=== PATIENT | female | born 1975 | race Caucasian/White ===

== ENCOUNTER 2018-02-16 06:07 | Inpatient (IN) | payer OTHER ==
[~2018-02-16 06:07] MED LIST: ACETAMINOPHEN 500 MG TAB PO ONE; GABAPENTIN 300 MG CAP PO ONE; LIDOCAINE 1% 2 ML INJ ID PRN; LR 1,000 ML IV ONE; ceFAZolin 2 GM/DEXTROSE 100 ML IV ONE
[2018-02-16] MEDS ORDERED: THROMBIN (BOVINE) 20,000 UNIT SPRAY TP ONE (06:36)
[2018-02-16] MEDS ORDERED: BACITRACIN 50,000 UNITS/10 ML SYR IRR ONE (06:36)
[2018-02-16] MEDS ORDERED: SURGIFLO MATRIX KIT WITH THROMBIN 8 ML TP ONE (06:36)
[2018-02-16] MEDS ORDERED: CHLORHEXIDINE GLUC HIBICLENS 118 ML BTL TP ONE (06:36)
[2018-02-16] MEDS ORDERED: MIDAZOLAM 2 MG/2 ML VIAL IVP ONE (06:54)
--- NOTE | 2018-02-16 06:54 | PDHPUP ---
History & Physical Update H&P update statement: This history and physical update is based on an assessment of the patient which was completed after admission or registration (within 24 hours), but prior to the surgery/procedure. H&P update: H&P reviewed & patient examined, no change in patient's condition since H&P completed (Consents signed and site marked. All questions answered.)
--- NOTE | 2018-02-16 06:57 | PDANEPAE ---
ANE History of Present Illness 42 y/o prior smoker here for 3 level ACDF for symptomatic cervical myelopathy. ANE Past Medical History - Cardiovascular History Hx Hypertension: No Hx Arrhythmias: No Hx Chest Pain: No Hx Coronary Artery / Peripheral Vascular Disease: No Hx CHF / Valvular Disease: No Hx Palpitations: No Cardiovascular History Comment: PERICARDITIS 2002 - Pulmonary History Hx COPD: No Hx Asthma/Reactive Airway Disease: No Hx Recent Upper Respiratory Infection: No Hx Oxygen in Use at Home: No Hx Sleep Apnea: No Sleep Apnea Screening Result - Last Documented: Negative Pulmonary History Comment: QUIT SMOKING 01/15/18. 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 3 TIA'S LAST 2005 - Endocrine History Hx Diabetes: No Endocrine History Comment: HYPOTHYROID - Renal History Hx Renal Disorders: Yes Renal History Comment: URGENCY. OCCASIONAL INCONT - Liver History Hx Hepatic Disorders: Yes Hepatic History Comment: LIVER BILE DUCT DILATED. ERCP NEG - Neurological & Psychiatric Hx Hx Neurological and Psychiatric Disorders: Yes Neurological / Psychiatric History Comment: FREQUENT MIGRAINES. ANXIETY( RELATED TO FAMILY ISSUES) - Cancer History Hx Cancer: Yes Cancer History Comment: CERVICAL - Congenital Disorder History Hx Congenital Disorders: No - GI History Hx Gastrointestinal Disorders: Yes Gastrointestinal History Comment: IBS - Other Health History Other Health History: SPINAL STENOSIS. CDD. NT ARMS/HANDS. LT LEG WEAKNESS. CARPAL TUNNEL ULNAR NEUROPATHIES. INTERMITTENT ECZEMA. GLAUCOMA. UPPER DENTURES - Chronic Pain History Chronic Pain: Yes (NECK,TIFF SHLDRS,THORACIC) - Surgical History Prior Surgeries: HYSTERECTOMY. TUBAL LIGATION. UPPER DENTAL EXTRACTION 2017 ANE Review of Systems Review of Systems: - Exercise capacity Exercise capacity: >=4 METS METS (RN): 6 METS ANE Patient History - Allergies Allergies/Adverse Reactions: banana Allergy (Verified 02/02/18 09:09) melon Allergy (Verified 02/02/18 09:09) - Home Medications Home medications: home medication list seen and reviewed Home Medications: ALPRAZolam [Xanax 1 MG (*)] 2 mg PO HS 02/08/18 [Last Taken 02/16/18] Albuterol [Proventil Inhaler HFA (*)] 1 - 2 puffs IH Q4H PRN 02/08/18 [Last Taken 02/09/18] Ascorbic Acid [Vitamin C 500 mg (*)] 1,000 mg PO DAILY 02/08/18 [Last Taken 12/19] Cholecalciferol Vit D3 [Vitamin D3 (*)] 5,000 units PO DAILY 02/08/18 [Last Taken 02/09/18] Herbals/Supplements -Info Only 1 ea PO DAILY 02/08/18 [Last Taken 02/09/18] Latanoprost 0.005% [Xalatan 0.005% (*)] 1 drops EACHEYE HS 02/08/18 [Last Taken 02/15/18] Levothyroxine [Synthroid 200 mcg (*)] 200 mcg PO DAILY06 02/08/18 [Last Taken ] SUMAtriptan [Imitrex 50 MG (*)] 100 mg PO DAILY PRN 02/08/18 [Last Taken ] oxyCODONE HCL/ACETAMINOPHEN [Percocet 10-325 mg Tablet] 1 each PO BID 02/08/18 [ Last Taken 02/16/18] Chantix DAILY 02/13/18 [Last Taken 02/16/18] MARINOL PRN 02/13/18 [Last Taken Unknown] Triamcinolone 0.05% PRN 02/13/18 [Last Taken 02/15/18] - NPO status NPO Status: no food or drink >8 hours NPO Since - Liquids (Date): 02/16/18 NPO Since - Liquids (Time): 21:30 NPO Since - Solids (Date): 02/15/18 NPO Since - Solids (Time): 19:30 - Smoking Hx Smoking Status: Former smoker - Family Anes Hx Family Hx Anesthesia Complications: NEG ANE Labs/Vital Signs - Vital Signs Vital Signs: reviewed preoperatively; see RN documention for details Height: 157.48 cm Weight: 45.359 kg ANE Physical Exam - Airway Neck exam: FROM Mallampati Score: Class 1 Mouth exam: dentures - Pulmonary Pulmonary: clear to auscultation - Cardiovascular Cardiovascular: regular rate and rhythym - ASA Status ASA Status: II ANE Anesthesia Plan Lines/Monitors: arterial line
[2018-02-16] MEDS ORDERED: DEXMEDETOMIDINE HCL 400 MCG in NS 100 ML IV SCH (07:00)
[2018-02-16] MEDS ORDERED: PROPOFOL/EMULSION 500 MG/50 ML BOTTLE IV ONE ×2 (07:04→09:01)
[2018-02-16] MEDS ORDERED: fentaNYL 100 MCG/2 ML INJ ONE ×3 (07:05→11:07)
[2018-02-16] MEDS ORDERED: MIDAZOLAM 2 MG/2 ML VIAL ONE (07:06)
[2018-02-16] MEDS ORDERED: DEXAMETHASONE 4 MG/ML VIAL ONE ×3 (07:15)
[2018-02-16] MEDS ORDERED: PETROLAT,WHT/MIN OIL/SOD CHL 3.5 GM OPHT.OINT ONE (07:17)
[2018-02-16] MEDS ORDERED: PROPOFOL 200 MG/20 ML VIAL ONE (07:22)
--- NOTE | 2018-02-16 09:44 | POSTANESTH ---
Post Anesthetic Evaluation Respiratory Status: Normal, Stable Level of Consciousness/Mental Status: Can Participate in Eval Pain Control: Adequate, Prn Tx Ordered Nausea/Vomiting Control: Adequate, Prn Tx Ordered Complications Possibly Related to Anesthesia: None Noted
[2018-02-16] MEDS ORDERED: ONDANSETRON 4 MG/2 ML VIAL ONE (10:07)
[2018-02-16] MEDS ORDERED: LABETALOL HCL 5 MG/ML 20 ML MDV IVP PRN (10:09)
[2018-02-16] MEDS ORDERED: PROMETHAZINE HCL 25 MG/ML INJ IVP PRN (10:09)
[2018-02-16] MEDS ORDERED: oxyCODONE IR 5 MG TAB PO PRN (10:09)
[2018-02-16] MEDS ORDERED: METOCLOPRAMIDE 10 MG/2 ML VIAL IVP PRN (10:09)
[2018-02-16] MEDS ORDERED: NALOXONE HCL 0.4 MG/ML INJ IVP PRN (10:09)
[2018-02-16] MEDS ORDERED: ALBUTEROL 3 ML DEYVIAL IH PRN (10:09)
[2018-02-16] MEDS ORDERED: HYDROmorphONE/DILAUDID 2 MG/ML INJ IVP PRN (10:09)
[2018-02-16] MEDS ORDERED: MEPERIDINE 25 MG/0.5 ML AMP IVP PRN (10:09)
[2018-02-16] MEDS ORDERED: ACETAMINOPHEN 500 MG TAB PO PRN (10:09)
[2018-02-16] MEDS ORDERED: ALBUTEROL 60 PUFFS/8 GM MDI IH PRN (11:04)
[2018-02-16] MEDS ORDERED: MAGNESIUM HYDROXIDE 30 ML UDCUP PO PRN (11:05)
[2018-02-16] MEDS ORDERED: ONDANSETRON 4 MG/2 ML VIAL IVP PRN (11:05)
[2018-02-16] MEDS ORDERED: LACTULOSE 20 GM/30 ML UDCUP PO PRN (11:05)
[2018-02-16] MEDS ORDERED: METHOCARBAMOL 750 MG TAB PO PRN (11:05)
[2018-02-16] MEDS ORDERED: POLYETHYLENE GLYCOL 3350 17 GM PKT PO PRN (11:05)
[2018-02-16] MEDS ORDERED: diphenhydrAMINE 25 MG CAP PO PRN (11:05)
[2018-02-16] MEDS ORDERED: ONDANSETRON DISINTEGRATING 4 MG TAB PO PRN (11:05)
[2018-02-16] MEDS ORDERED: BISACODYL 10 MG SUPP PR PRN (11:05)
[2018-02-16] MEDS ORDERED: HYDROmorphONE/DILAUDID 2 MG/ML INJ ONE (11:07)
[2018-02-16] MEDS: fentaNYL 100 MCG/2 ML INJ IVP PRN ×2 (11:11→11:20)
[2018-02-16] MEDS ORDERED: NS 1,000 ML IV SCH (11:15)
--- NOTE | 2018-02-16 11:35 | POSTOPPROG ---
Post Op Note Date of Operation: 02/16/18 Surgeon: Jimy Beavers Laborer Tree Tapping: INGA Rich PAC Anesthesia: GET(General Endotracheal) Pre-op Diagnosis: cervical stenosis Post-op Diagnosis: cervical stenosis Indication: cervical stenosis Procedure: ACDF C3/4 and C5/6 and C6/7 via 2 separate incision Inf/Abcess present in the surg proc area at time of surgery?: No PA Addendum - Addendum .: S: Posterior neck pain O: NAD A&Ox3 MAEx4 5/5 and equal in BUE and BLE 42y/o female s/p ACDF C3/4 and C5/6 and C6/7 via 2 separate incision -Advance diet as tolerated -Optimize pain management -Post op xrays pending -Hard collar at all times other than eating -DVT prophx: TEDs, SCDs, Lovenox okay POD3 -PT/OT/CLINICAL DATA MANAGER -Please notify NS with any change in neuro/motor exam
[2018-02-16] MEDS ORDERED: DRONABINOL 2.5 MG CAP PO PRN (12:00)
[2018-02-16] MEDS: DEXAMETHASONE 4 MG/ML VIAL IVP SCH ×2 (12:36→17:35)
--- NOTE | 2018-02-16 14:11 | PDMN ---
Medical Necessity Medical necessity: Pt meets inpt criteria per MD order and [facility] [place] S-320, Cervical Fusion, Anterior. 42 y/o w/cervical stenosis admitted s/p ACDF C3/4, C5/6, C6/ 7. PT/OT/STOCK UNLOADER pending, pain management, IV Decadron. May require ext post-op care given multi-level fusion.
[2018-02-16] MEDS: CYCLOBENZAPRINE 10 MG TAB PO SCH ×2 (14:50→22:48)
[2018-02-16] MEDS: ACETAMINOPHEN 500 MG TAB PO SCH ×2 (14:50→22:47)
[2018-02-16] MEDS: ceFAZolin 2 GM/DEXTROSE 100 ML IV SCH ×2 (14:50→22:48)
[2018-02-16] MEDS: oxyCODONE IR 5 MG TAB PO PRN ×2 (15:58→20:01)
--- NOTE | 2018-02-16 16:54 | GOP ---
DATE OF OPERATION: 02/16/2018 SURGEON: Jimy Beavers MD AUTOCAD DETAILER: VAHE Vizcaino. ANESTHESIA: General. PREOPERATIVE DIAGNOSIS: 1. C3-C4 severe spinal stenosis. 2. C5 through C7 cervical spondylosis. 3. Cervical myelopathy. 4. Cervical radiculopathy. 5. Treatment refractory to nonoperative intervention. POSTOPERATIVE DIAGNOSIS: 1. C3-C4 severe spinal stenosis. 2. C5 through C7 cervical spondylosis. 3. Cervical myelopathy. 4. Cervical radiculopathy. 5. Treatment refractory to nonoperative intervention. PROCEDURE PERFORMED: 1. Anterior arthrodesis with approach to C3 and C4. 2. C3-C4 diskectomy with bilateral foraminotomies, osteophytectomies, and interbody fusion using a 7 x 14 x 11 mm titanium coated polyetheretherketone cage filled with morselized autograft and allograft. 3. Anterior cervical fusion C3 and C4 with a 15 mm Medtronic Zevo plate 4. Anterior arthrodesis with approach to C5, C6, and C7 via a separate incision. 5. C5-C6 diskectomy with bilateral foraminotomies, osteophytectomies, and interbody fusion using a 6 x 14 x 11 mm titanium coated polyetheretherketone cage filled with morselized autograft and allograft. 6. C6-C7 diskectomy with bilateral foraminotomies, osteophytectomies, and interbody fusion using a 6 x 14 x 11 mm titanium coated polyetheretherketone cage filled with morselized autograft and allograft. 7. Anterior cervical fusion of C5, C6, C7 with a 33 mm Medtronic Zevo plate. 8. Use of intraoperative fluoroscopy, less than 1 hour physician time. 9. Use of neuromonitoring. 10. Use of operative microscope. 11. Use of intraoperative fluoroscopy, less than 1 hour physician time. FINDINGS: per imaging SPECIMENS: None. ESTIMATED BLOOD LOSS: 20 mL. INDICATIONS: The patient is a very pleasant 42-year-old woman who presented office with signs and symptoms consistent with cervical myelopathy and radiculopathy. She had evidence of severe spinal stenosis at the C3-C4 level and moderate cervical stenosis with spondylosis C5 through C7. After discussion of the various risks, benefits, and treatment alternatives, we decided to proceed with the surgery as described above. DESCRIPTION OF PROCEDURE: Patient was brought to the operating theater and underwent general endotracheal anesthesia without complications. She had Venodynes, KIANA hose, and the appropriate lines placed by Anesthesia. She was maintained supine on the operating room table. Using lateral fluoroscopy and a spinal needle, we picked 2 entry points that would give us best approach at C3- C4 and the C5 through C7 levels. This was marked as 2 transverse incisions on the right side of her neck. These areas were then prepped and draped in usual sterile surgical fashion. A time-out was completed per protocol, and the patient received antibiotics within 1 hour of incision. Both incisions were taken down initially with the scalpel blade. Using monopolar, the incisions were taken down to the level of the platysma. First we moved up to C3-C4, where we used blunt and sharp dissection to travel medial to the carotid sheath and lateral to the esophagus and trachea to reach the prevertebral fascia. We placed a bayonetted needle into the disk space of C3- C4 and confirmed our level using lateral fluoroscopy. We then moved down to the C5 through C7 level where we again opened the fibers of the platysma cranially and caudally and used blunt dissection to travel in a plane medial to the carotid sheath and lateral to the esophagus and trachea until we reached the prevertebral fascia. We placed a bayonetted needle at the disk space of C5- C6. We confirmed our levels at the C3-C4 and C5-C6 levels using lateral fluoroscopy. We elevated the longus coli muscle from the anterior vertebral bodies of C5, C6, and C7 and then C3-C4. We moved up to C3-C4 and placed deep retractors to maintain our exposure. The microscope was brought into the field to assist with microscopic dissection and to maintain illumination and magnification. We placed [place] pins into the vertebral bodies of C3-C4 and placed C3-C4 into mild distraction. We completed a C3-C4 diskectomy with bilateral foraminotomies and osteophytectomies. We prepared the cartilaginous endplates and measured interbody space. We placed a 7 x 14 x 11 mm titanium coated PEEK cage filled with morselized autograft and allograft in the C3-C4 disk space. We removed the [place] pins and drilled down the anterior osteophytes and secured a 15 mm Medtronic Zevo plate onto the vertebral bodies of C3 and C4. We obtained hemostasis with a bipolar, and the wound was irrigated copiously with bacitracin irrigation. We then closed this wound in multiple layers using Vicryl sutures for deep layers and Dermabond for the skin. We then moved on to the C5-C7 levels. We moved to C5-C6 and placed [place] pins into C5 and C6 and placed C5-C6 in mild distraction. We completed a C5-C6 diskectomy with bilateral foraminotomies and osteophytectomies. We prepared the cartilaginous endplates and measured the interbody space. We placed a 6 x 14 x 11 mm titanium coated PEEK cage filled with morselized autograft and allograft into the C5-C6 disk space. We removed the [place] pin from C5 and placed it in C7, and placed C6-C7 into mild distraction. We completed a C6-C7 diskectomy with bilateral foraminotomies and osteophytectomies. We prepared the cartilaginous endplates and measured the interbody space. We placed a 6 x 14 x 11 mm titanium coated PEEK cage filled with morselized autograft and allograft into the C6-7 disk space. We removed with the [place] pins and drilled down the anterior osteophytes and secured a 33 mm Medtronic Zevo plate onto the vertebral bodies of C5, C6 and C7. AP and lateral x-rays demonstrated good placement of the hardware. The wound was irrigated copiously with bacitracin irrigation. We then closed the wound in multiple layers including Vicryl sutures for the deep layers and Dermabond for the skin. The patient's wounds were dressed sterilely. She was awakened, extubated, and taken to the recovery room in stable condition. There were no complications and no noted changes on neuromonitoring throughout the procedure. COMPLICATIONS: None. /[id number]/MODL MTDD
--- NOTE | 2018-02-16 17:21 | SOAPPROG ---
Downtime Inpatient MD Late Entry SOAP Note: I met with the patient. She is doing well overall. Will monitor overnight and then plan for dc tomorrow if swallowing and pain controlled.
[2018-02-16] MEDS: HYDROmorphONE/DILAUDID 2 MG TAB PO PRN ×2 (18:46→22:49)
[2018-02-16] MEDS ORDERED: ALPRAZolam 1 MG TAB PO SCH (21:00)
[2018-02-16] MEDS ORDERED: LATANOPROST 0.005% 2.5 ML OPHT DROPS EACHEYE SCH (21:00)
[2018-02-16] MEDS ORDERED: oxyCODONE IR 5 MG TAB PO SCH (21:00)
[2018-02-16] MEDS ORDERED: OXYCODONE/APAP 5/325 TAB PO SCH (21:00)
[2018-02-16] MEDS: SENNOSIDES/DOCUSATE SODIUM TAB PO SCH (21:01)
[2018-02-16] MEDS: FAMOTIDINE 20 MG TAB PO SCH (21:01)
[2018-02-17] MEDS ORDERED: SUMAtriptan 50 MG TAB PO PRN (02:30)
[2018-02-17] MEDS: ACETAMINOPHEN 500 MG TAB PO SCH (05:06)
[2018-02-17] MEDS: HYDROmorphONE/DILAUDID 2 MG TAB PO PRN ×2 (05:11→09:11)
[2018-02-17] MEDS ORDERED: LEVOTHYROXINE 100 MCG TAB PO SCH (06:00)
[2018-02-17] MEDS: oxyCODONE IR 5 MG TAB PO PRN (07:17)
[2018-02-17] MEDS: SENNOSIDES/DOCUSATE SODIUM TAB PO SCH (08:05)
[2018-02-17] MEDS: CYCLOBENZAPRINE 10 MG TAB PO SCH (08:05)
[2018-02-17] MEDS: FAMOTIDINE 20 MG TAB PO SCH (08:05)
[2018-02-17 08:54] VITALS: BP 116/70
[2018-02-17] MEDS ORDERED: Herbals/Supplements -Info Only PO SCH (09:00)
--- NOTE | 2018-02-17 10:47 | NEUSURGPN ---
Assessment/Plan: A/P:42y/o female s/p ACDF C3/4 and C5/6 and C6/7 via 2 separate incision -Advance diet as tolerated- doing well currently -Optimize pain management -Post op xrays show good hardware placement -Hard collar at all times other than eating -DVT prophx: TEDs, SCDs, Lovenox okay POD3 -PT/OT/BUILDING CONTRACTOR -Dispo home today when cleared by BUILDING CONTRACTOR -Please notify NS with any change in neuro/motor exam S: Patient is doing much better this morning in terms of pain. Swallowing well. Eager to go home O: NAD A&Ox3 MAEx4 5/5 and equal in BUE and BLE - Physician Discussed Patient with Dr.: Nimesh Neurosurgery Physical Exam - Vitals, I&O, Labs I and O 02/16/18 02/17/18 02/18/18 05:59 05:59 05:59 Intake Total 2450 Output Total 2560 Balance -110 Weight 45.359 kg Intake: Oral (ml) 800 IV Intake (ml) 1650 Output: Urine (ml) 2550 Toilet 2550 Estimated Blood Loss (ml) 10 Other: Number of Voids Toilet 1 Vital Signs Temp Pulse Resp BP Pulse Ox 36.8 C 79 16 116/70 98 02/17/18 08:00 02/17/18 09:59 02/17/18 09:59 02/17/18 08:00 02/17/18 09:59 ICD10 Worksheet Patient Problems: Problems Problem Status Onset Cervical radiculopathy Acute - ICD10 Problem Qualifiers (1) Cervical radiculopathy
--- NOTE | 2018-02-17 11:47 | ASMTLACE ---
[place] Length of stay for Answers: 2 days current admission Acuity / Level of Answers: Yes Care: Did the patient have an inpatient admission? Comorbidities - select Answers: Cerebrovascular disease all that apply (CVA, TIA, aneurysms, vasc ular dementia) Opioid dependence / Chronic pain Other Notes: Hypothyroid; Seizures # of Emergency department Answers: 0 visits in the last 6 months Social determinants Answers: Mental health diagnosis (anxiety, depression, pers onality disorders, etc.) Score: 14 Date Signed: 02/17/2018 11:46 AM Electronically Signed By:JULISA Zimmerman
--- NOTE | 2018-02-17 11:48 | ASMTCMCOM ---
CM Note CM Note Notes: Pt medically stable for d/c, no CM d/c needs identified. PRODUCTION ASSEMBLER rec home, PT rec outpatient. Date Signed: 02/17/2018 11:47 AM Electronically Signed By:JULISA Zimmerman
[2018-02-19] MEDS ORDERED: ENOXAPARIN 40 MG/0.4 ML SYR SC SCH (09:00)
== END 2018-02-17 11:10 | disposition home or self-care (01) | DRG 472 ==
LOC: F3N 06:07 → OBSVTOIN 11:25 → F3N 12:12
PROVIDERS: ADMIT Neurological Surgery; ATTEND Neurological Surgery
DX: M48.02 Spinal stenosis, cervical region (principal); M50.01 Cervical disc disorder with myelopathy, high cervical region; M50.021 Cervical disc disorder at C4-C5 level with myelopathy; M50.022 Cervical disc disorder at C5-C6 level with myelopathy; M50.023 Cervical disc disorder at C6-C7 level with myelopathy; F41.9 Anxiety disorder, unspecified; G43.909 Migraine, unspecified, not intractable, without status migrainosus; R39.15 Urgency of urination; Z87.891 Personal history of nicotine dependence; Z86.73 Personal history of transient ischemic attack (TIA), and cerebral infarction without residual deficits
CPT/HCPCS: 92610-GN; 97161-GP; 97165-GO; C1713; J0690; J1100; J1170; J2250; J2405; J2704; J3010